=== PATIENT | female | born 1950 | race Caucasian/White ===

== ENCOUNTER → 2016-12-14 | Outpatient (CLI) | payer OTHER | LOC: FIMAGING 09:39 | DX: Z12.31 Encounter for screening mammogram for malignant neoplasm of breast (principal) | CPT/HCPCS: G0202 ==

== ENCOUNTER 2017-10-29 15:34 | Emergency (ER) | payer OTHER ==
[2017-10-29 15:42] VITALS: RESP 16
[2017-10-29] MEDS ORDERED: ASPIRIN 81 MG CHEWABLE TAB PO ONE (15:51)
--- NOTE | 2017-10-29 15:54 | EDPHY ---
H & P Stated Complaint: RIGHT SIDED BACK PAIN Time Seen by Provider: 10/29/17 15:45 HPI/ROS: CHIEF COMPLAINT: Right back pain HISTORY OF PRESENT ILLNESS: Patient is a 67-year-old female with history only of hypercholesteremia who comes to the emergency department complaining of pain in her right shoulder blade. She states that it seems tender when she lifts her arm up in the ER and palpates the area. It also radiates up to her right shoulder. It began about 5 days ago. She denies chest pain. She denies left- sided pain. She denies pain near the spine. No headache or lightheadedness. No abdominal pain. It is not pleuritic and she does not feel short of breath. She called her doctor's office today to schedule appointment and they recommended she come to the ER. She did take some ibuprofen earlier today which seemed to help to some degree. She also states that about 2 weeks ago she had a cough and bronchitis type illness. REVIEW OF SYSTEMS: Constitutional: denies: chills, fever, recent illness, recent injury EENTM: denies: blurred vision, double vision, nose congestion Respiratory: See HPI Cardiac: denies: chest pain, irregular heart rate, lightheadedness, palpitations Gastrointestinal/Abdominal: denies: abdominal pain, diarrhea, nausea, vomiting, blood streaked stools Genitourinary: denies: dysuria, frequency, hematuria, pain Musculoskeletal: denies: joint pain, muscle pain Skin: denies: lesions, rash, jaundice, bruising Neurological: denies: headache, numbness, paresthesia, tingling, dizziness, weakness Hematologic/Lymphatic: denies: blood clots, easy bleeding, easy bruising Immunologic/allergic: denies: HIV/AIDS, transplant EXAM: GENERAL: Well-appearing, well-nourished and in no acute distress. HEAD: Atraumatic, normocephalic. EYES: Pupils equal round and reactive to light, extraocular movements intact, sclera anicteric, conjunctiva are normal. ENT: TMs normal, nares patent, oropharynx clear without exudates. Moist mucous membranes. NECK: Normal range of motion, supple without lymphadenopathy or JVD. LUNGS: Breath sounds clear to auscultation bilaterally and equal. No wheezes rales or rhonchi. HEART: Regular rate and rhythm without murmurs, rubs or gallops. ABDOMEN: Soft, nontender, normoactive bowel sounds. No guarding, no rebound. No masses appreciated. BACK: No CVA tenderness, no spinal tenderness, step-offs or deformities no obvious tenderness, no deformity, no pain with range of motion of shoulder or ribs. EXTREMITIES: Normal range of motion, no pitting or edema. No clubbing or cyanosis. NEUROLOGICAL: Cranial nerves II through XII grossly intact. Normal speech, normal gait. 5/5 strength, normal movement in all extremities, normal sensation PSYCH: Normal mood, normal affect. SKIN: Warm, dry, normal turgor, no visible rashes or lesions. Source: Patient Exam Limitations: No limitations - Personal History Current Tetanus/Diphtheria Vaccine: Yes Current Tetanus Diphtheria and Acellular Pertussis (TDAP): Yes - Medical/Surgical History Hx Asthma: No Hx Chronic Respiratory Disease: No Hx Diabetes: No Hx Cardiac Disease: No Hx Renal Disease: No Hx Cirrhosis: No Hx Alcoholism: No Hx HIV/AIDS: No Hx Splenectomy or Spleen Trauma: No Other PMH: DENIES - Social History Smoking Status: Never smoked Alcohol Use: Sober Drug Use: None Constitutional: Initial Vital Signs Temperature (C) 36.7 C 10/29/17 15:38 Heart Rate 100 10/29/17 15:38 Respiratory Rate 16 10/29/17 15:38 Blood Pressure 191/103 H 10/29/17 15:38 O2 Sat (%) 96 10/29/17 15:38 O2 Delivery Mode Room Air Allergies/Adverse Reactions: No Known Allergies Allergy (Unverified 10/29/17 15:37) Home Medications: Medication Instructions Recorded LORAZEPAM 10/29/17 Medical Decision Making - Diagnostics EKG Interpretation: An EKG obtained and was read and documented in trace view. Please see trace view for full reading and report. Sinus rhythm, no acute ischemic changes Imaging Results: Imaging Impressions Chest X-Ray 10/29/17 15:52 Impression: Normal chest x-ray. 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 The patient is asymptomatic. No shortness of breath, no chest pain. We discussed her lab and test results which are reassuring. Her symptoms have not worsened or changed in the last few hours. She would like to be discharged and declines further workup or testing. She will follow up with Dr. Salazar and has an appointment on Wednesday. We also discussed indications for returning emergency department. Differential Diagnosis: Partial list of the Differential diagnosis considered include but were not limited to; musculoskeletal pain, pleurisy and although unlikely based on the history and physical exam, I also considered PE, pneumothorax, acute coronary disease. I discussed these differential diagnoses and the plan with the patient as well as the usual and expected course. The patient understands that the diagnosis is provisional and that in medicine we are not always correct and that further workup is often warranted. Usual and customary warnings were given. All of the patient's questions were answered. The patient was instructed to return to the emergency department should the symptoms at all worsen or return, otherwise to followup with the physician as we discussed. - Data Points Laboratory Results: Laboratory Results 10/29/17 16:15 10/29/17 16:15 10/29/17 10/29/17 10/29/17 16:15 16:15 16:15 WBC 8.77 10^3/uL 10^3/uL (3.80-9.50) RBC 5.09 10^6/uL 10^6/uL (4.18-5.33) Hgb 15.1 g/dL g/dL (12.6-16.3) Hct 44.0 % % (38.0-47.0) MCV 86.4 fL fL (81.5-99.8) MCH 29.7 pg pg (27.9-34.1) MCHC 34.3 g/dL g/dL (32.4-36.7) RDW 13.7 % % (11.5-15.2) Plt Count 251 10^3/uL 10^3/uL (150-400) MPV 9.7 fL fL (8.7-11.7) Neut % (Auto) 60.0 % % (39.3-74.2) Lymph % (Auto) 31.2 % % (15.0-45.0) [place] % (Auto) 6.8 % % (4.5-13.0) Eos % (Auto) 0.9 % % (0.6-7.6) Baso % (Auto) 0.8 % % (0.3-1.7) Nucleat RBC Rel Count 0.0 % % (0.0-0.2) Absolute Neuts (auto) 5.25 10^3/uL 10^3/uL (1.70-6.50) Absolute Lymphs (auto) 2.74 10^3/uL 10^3/uL (1.00-3.00) Absolute Monos (auto) 0.60 10^3/uL 10^3/uL (0.30-0.80) Absolute Eos (auto) 0.08 10^3/uL 10^3/uL (0.03-0.40) Absolute Basos (auto) 0.07 10^3/uL 10^3/uL (0.02-0.10) Absolute Nucleated RBC 0.00 10^3/uL 10^3/uL (0-0.01) Immature Gran % 0.3 % % (0.0-1.1) Immature Gran # 0.03 10^3/uL 10^3/uL (0.00-0.10) PT 12.9 SEC SEC (12.0-15.0) INR 0.95 (0.83-1.16) APTT 28.1 SEC SEC (23.0-38.0) D-Dimer < 0.27 ug/mLFEU ug/mLFEU (0.00-0.50) Sodium 142 mEq/L mEq/L (135-145) Potassium 3.6 mEq/L mEq/L (3.5-5.2) Chloride 105 mEq/L mEq/L (97-110) Carbon Dioxide 25 mEq/l mEq/l (22-31) Anion Gap 12 mEq/L mEq/L (8-16) BUN 13 mg/dL mg/dL (7-23) Creatinine 0.8 mg/dL mg/dL (0.6-1.0) Estimated GFR > 60 Glucose 102 mg/dL H mg/dL (70-100) Calcium 9.6 mg/dL mg/dL (8.5-10.4) Troponin I < 0.012 ng/mL ng/mL (0.000-0.034) Medications Given: Discontinued Medications Aspirin (Aspirin) 324 mg PO EDNOW ONE Stop: 10/29/17 15:52 Last Admin: 10/29/17 16:56 Dose: 324 mg Departure - Departure Disposition: Home, Routine, Self-Care Clinical Impression: Shoulder pain, right Qualifiers: Chronicity: acute Qualified Code(s): M25.511 - Pain in right shoulder Condition: Fair Instructions: Shoulder Pain (ED) Referrals: Marlin Flynn MD [Primary Care Provider] - As per Instructions
--- NOTE | 2017-10-29 16:18 | CPEKG ---
Heart Rate: 85 RR Interval: 706 P-R Interval: 132 QRSD Interval: 92 QT Interval: 368 QTC Interval: 438 P Waldo: 70 QRS Waldo: -7 T Wave Waldo: 35 EKG Severity - NORMAL ECG - EKG Impression: SINUS RHYTHM Electronically Signed By: Ector Last 29-Oct-2017 16:28:04
[2017-10-29 16:31] LABS: PLATELET COUNT 251 10^3/uL (150-400)
[2017-10-29 16:40] LABS: INR 0.95 (0.83-1.16); PROTIME(PATIENT) 12.9 SEC (12.0-15.0)
[2017-10-29 17:40] VITALS: BP 178/96; PULSE 77; TEMP 98.4; O2SAT 93
== END 2017-10-29 17:39 | disposition home or self-care (01) ==
DX: M25.511 Pain in right shoulder (principal)

== ENCOUNTER → 2018-04-12 | Outpatient (CLI) | payer OTHER | LOC: FIMAGING 11:20 | PROVIDERS: ATTEND Internal Medicine | DX: Z12.31 Encounter for screening mammogram for malignant neoplasm of breast (principal) ==